=== PATIENT | female | born 1985 | race Caucasian/White ===

== ENCOUNTER 2020-08-10 22:13 | Emergency (ER) | payer BC ==
[~2020-08-10 22:13] MED LIST: COLACE100 MG PO; LEXAPRO5 MG PO; ZOFRAN4 MG PO
[2020-08-10 23:31] LABS: HEMOGLOBIN 14.1 gm/dl (12.3-15.3); RED BLOOD COUNT 4.65 M/UL (4.00-5.10); WHITE BLOOD COUNT 5.5 K/UL (4.5-11.0)
[2020-08-10 23:58] LABS: BUN/CREATININE RATIO 16 (0-10)
== END 2020-08-11 18:22 | disposition left against medical advice (07) ==
LOC: ER1 22:13 → CDU 08-11 15:39 → ER1 08-11 15:39 → CDU 08-11 18:22 → ER1 08-11 18:22
PROVIDERS: Physician Assistant
DX: R20.2 Paresthesia of skin (principal); R51.9 Headache, unspecified; E04.1 Nontoxic single thyroid nodule; R41.0 Disorientation, unspecified; R29.700 NIHSS score 0; F32.9 Major depressive disorder, single episode, unspecified; F41.9 Anxiety disorder, unspecified; Z79.899 Other long term (current) drug therapy; Z86.59 Personal history of other mental and behavioral disorders
CPT/HCPCS: 70450; 70496; 70498; 71045; 80053; 82550; 82553; 83874; 84484; 85025; 85610; 85730; 93005; 96374; 99285; J1885; Q9967; U0002

== ENCOUNTER → 2020-09-11 | Outpatient (CLI) | payer BC ==
[2020-09-11 09:41] LABS: WBC (AUTOMATED 2 10^3 (0-5)
[2020-09-11 10:02] LABS: GLUCOSE,CSF 55 mg/dL (50-80); TOTAL PROTEIN,CSF 28 mg/dL (20-45)
== END ==
LOC: RAD 07:55
PROVIDERS: Ophthalmology
PROC: 009U3ZX Drainage of Spinal Canal, Percutaneous Approach, Diagnostic (ICD-10-PCS; principal; 2020-09-11)
DX: G43.111 Migraine with aura, intractable, with status migrainosus (principal)
CPT/HCPCS: 82945; 84157; 87015; 87070; 87116; 87205; 87210; 87252; 89051

== ENCOUNTER 2020-09-12 09:34 | Emergency (ER) | payer BC ==
[2020-09-12 10:16] LABS: HEMOGLOBIN 13.3 gm/dl (12.3-15.3); RED BLOOD COUNT 4.43 M/UL (4.00-5.10); WHITE BLOOD COUNT 6.5 K/UL (4.5-11.0)
[2020-09-12 10:37] LABS: BUN/CREATININE RATIO 17 (0-10)
== END 2020-09-12 13:25 | disposition home or self-care (01) ==
LOC: ER1 09:34
PROVIDERS: Emergency Medicine
DX: G97.1 Other reaction to spinal and lumbar puncture (principal); Y84.4 Aspiration of fluid as the cause of abnormal reaction of the patient, or of later complication, without mention of misadventure at the time of the procedure
CPT/HCPCS: 36415; 80048; 85025; 85610; 85730; 96365; 96366; 99284; J7030

== ENCOUNTER 2020-09-13 14:44 | Emergency (ER) | payer BC ==
[2020-09-13 15:30] LABS: HEMOGLOBIN 13.9 gm/dl (12.3-15.3); RED BLOOD COUNT 4.57 M/UL (4.00-5.10); WHITE BLOOD COUNT 6.7 K/UL (4.5-11.0)
[2020-09-13 15:50] LABS: BUN/CREATININE RATIO 8 (0-10)
== END 2020-09-13 18:45 | disposition home or self-care (01) ==
LOC: ER1 14:44
PROVIDERS: Emergency Medicine
DX: G97.1 Other reaction to spinal and lumbar puncture (principal); Y84.4 Aspiration of fluid as the cause of abnormal reaction of the patient, or of later complication, without mention of misadventure at the time of the procedure
CPT/HCPCS: 62273; 80048; 85025; 85610; 85730; 99284

== ENCOUNTER 2020-12-10 11:26 | Emergency (ER) | payer BC ==
[2020-12-10 14:17] LABS: BUN/CREATININE RATIO 23 (0-10)
[2020-12-10 14:34] LABS: HEMOGLOBIN 15.7 gm/dl (12.3-15.3); RED BLOOD COUNT 5.02 M/UL (4.00-5.10); WHITE BLOOD COUNT 7.9 K/UL (4.5-11.0)
[2020-12-10] MEDS ORDERED: ZOFRAN4 MG PO (15:11)
== END 2020-12-10 16:20 | disposition home or self-care (01) ==
LOC: ER1 11:26
PROVIDERS: Physician Assistant
DX: E86.0 Dehydration (principal)
CPT/HCPCS: 80053; 80307; 81001; 83690; 84703; 85025; 87086; 96374; 99284; J2405

== ENCOUNTER → 2022-01-18 | Emergency (ER) | payer BC | END | disposition left against medical advice (07) | LOC: ER1 03:52 | DX: M79.601 Pain in right arm (principal) | CPT/HCPCS: 93005 ==